=== PATIENT | male | born 1975 | race African-American/Black ===

== ENCOUNTER 2018-08-11 10:33 | Emergency (ER) | payer MEDICAID ==
[~2018-08-11] VITALS: Ht 182.9 cm; Wt 103.4 kg
[2018-08-11 12:14] VITALS: BP 136/86
== END 2018-08-11 12:14 | disposition home or self-care (01) ==
LOC: ED 10:33
DX: R30.0 Dysuria (principal); R10.30 Lower abdominal pain, unspecified; N48.89 Other specified disorders of penis; R51 Headache
CPT/HCPCS: 87491; 87591; J0696